=== PATIENT | female | born 1975 | race Caucasian/White ===

== ENCOUNTER → 2019-08-21 12:57 | Outpatient (BNVA) | payer SELFPAY | PROVIDERS: Family Provider Family Medicine; PCP Family Medicine; Visit Provider Nurse Practitioner | DX: M51.17 Intervertebral disc disorders with radiculopathy, lumbosacral region (principal); M54.2 Cervicalgia; G25.81 Restless legs syndrome; Z79.891 Long term (current) use of opiate analgesic | CPT/HCPCS: 99213; 99214 ==

== ENCOUNTER → 2020-04-03 10:27 | Outpatient (BNVA) | payer SELFPAY | PROVIDERS: Family Provider Family Medicine; PCP Family Medicine; Visit Provider Nurse Practitioner | DX: G89.29 Other chronic pain (principal); M51.17 Intervertebral disc disorders with radiculopathy, lumbosacral region; M54.2 Cervicalgia; G25.81 Restless legs syndrome; Z79.891 Long term (current) use of opiate analgesic | CPT/HCPCS: 99214 ==

== ENCOUNTER → 2020-08-05 10:01 | Outpatient (BNVA) | payer SELFPAY | PROVIDERS: Family Provider Family Medicine; PCP Family Medicine; Visit Provider Nurse Practitioner | DX: G89.29 Other chronic pain (principal); M51.17 Intervertebral disc disorders with radiculopathy, lumbosacral region; G25.81 Restless legs syndrome; M54.2 Cervicalgia; Z79.891 Long term (current) use of opiate analgesic | CPT/HCPCS: 99212; 99214 ==

== ENCOUNTER → 2020-12-24 10:08 | Outpatient (BNVA) | payer SELFPAY | PROVIDERS: Family Provider Family Medicine; PCP Family Medicine; Visit Provider Anesthesiology | DX: G89.29 Other chronic pain (principal); M51.17 Intervertebral disc disorders with radiculopathy, lumbosacral region; M54.2 Cervicalgia; G25.81 Restless legs syndrome; Z79.891 Long term (current) use of opiate analgesic | CPT/HCPCS: 99214 ==

== ENCOUNTER → 2021-03-06 14:04 | Outpatient (BNVA) | payer SELFPAY | PROVIDERS: Family Provider Family Medicine; PCP Nurse Practitioner Family; Visit Provider Anesthesiology | DX: G89.29 Other chronic pain (principal); M54.41 Lumbago with sciatica, right side; M54.42 Lumbago with sciatica, left side; M54.2 Cervicalgia; Z79.891 Long term (current) use of opiate analgesic | CPT/HCPCS: 99214 ==

== ENCOUNTER 2021-12-30 09:14 | Outpatient (CLI) | payer OTHER, SELFPAY ==
--- NOTE | 2021-12-30 09:19 | MM_ITS ---
WS: [id number] BILATERAL SCREENING DIGITAL BREAST MAMMOGRAPHY WITH TERESA DISPLACEMENT VIEWS. CAD PERFORMED. HISTORY: SCREEN COMPARISON: 02/07/2017 Bilateral craniocaudal and mediolateral oblique views are performed with tomosynthesis and SM. Teresa displacement views in CC and MLO projection also performed. Breasts composition: There are scattered areas of fibroglandular density. Bilateral breast implants are prepectoral. No change in the overall configuration. No rupture or extr avasation. There are a few benign calcifications within each breast. No mass. MM/[place] [id number] IMPRESSION: BI-RADS: 2-Benign FOLLOW-UP: 1 Year Follow-up
== END 2021-12-30 09:15 | disposition home or self-care (01) ==
LOC: RAD 09:15
PROVIDERS: PCP Nurse Practitioner Family; Visit Provider Nurse Practitioner Family
DX: Z12.31 Encounter for screening mammogram for malignant neoplasm of breast (principal)
CPT/HCPCS: 77063; 77067

== ENCOUNTER 2023-03-31 13:35 | Outpatient (CLI) | payer OTHER, SELFPAY ==
--- NOTE | 2023-03-31 14:12 | XR_ITS ---
WS: [id number] XR shoulder LT min 2V* [id number] REASON FOR EXAM: L ANTERIOR SHOULDER PAIN FINDINGS: No fracture or focal bone lesion. Acromioclavicular joint is intact. Sclerosis and irregularity of the subarticular acromial process. Glenohumeral joint space is not well demonstrated on this examination but does not appear to be signi ficantly narrowed. No soft tissue abnormality. 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
== END 2023-03-31 13:36 | disposition home or self-care (01) ==
PROVIDERS: PCP Nurse Practitioner Family; Visit Provider Nurse Practitioner Family
DX: M25.512 Pain in left shoulder (principal)
CPT/HCPCS: 73030

== ENCOUNTER → 2023-06-06 13:57 | Outpatient (BNVA) | payer OTHER, SELFPAY | PROVIDERS: PCP Nurse Practitioner Family; Visit Provider Specialist | DX: M25.512 Pain in left shoulder (principal); G89.29 Other chronic pain | CPT/HCPCS: 73030 ==

== ENCOUNTER 2023-07-01 10:47 | Outpatient (CLI) | payer OTHER, SELFPAY ==
--- NOTE | 2023-07-01 11:00 | MR_ITS ---
WS: [id number] MRI LEFT SHOULDER HISTORY: left shoulder injury/sprain COMPARISON: Radiograph 06/06/2023 TECHNIQUE: Multiplanar sequences of the shoulder joint are submitted. Moderate AC joint arthritis. Hypertrophic bone and soft tissue formation with abnormal signal through the AC ligament. Osteophyte encroachment upon the myotendinous portion of the supraspinatus. Signifi cant subacromial impingement. There is an acromial osteophyte with significant contact upon the dista l supraspinatus tendon. There is a small amount of fluid in the subacromial and subdeltoid bursa. No os acromion. Small erosions are noted involving the acromion and the distal clavicle. Biceps tendon i n normal position. Increased intermediate T2 signal in the distal supraspinatus tendon beginning at the level of the gle noid. More significant increased T2 signal near the subacromial impingement and distally. No full-thi ckness tear. The increased signal is most consistent with tendinopathy. There is thinning of the tend on and surface fraying. Mild tendinopathy in the distal subscapularis tendon. No tear. Infraspinatus tendon is normal. Mild narrowing of the glenohumeral joint. Intrasubstance degeneration of the superi or labrum. No tear. IMPRESSION: 1. Moderate AC joint arthritis with encroachment upon the supraspinatus tendon. 2. Severe acromial impingement upon the distal supraspinatus tendon. 3. Tendinopathy in the distal supraspinatus tendon beginning at the level of the glenoid and extendin g distally. No tendon tear identified.
== END 2023-07-01 10:48 | disposition home or self-care (01) ==
PROVIDERS: PCP Nurse Practitioner Family; Visit Provider Specialist
DX: M19.012 Primary osteoarthritis, left shoulder (principal); M25.712 Osteophyte, left shoulder; M75.82 Other shoulder lesions, left shoulder; S43.402A Unspecified sprain of left shoulder joint, initial encounter; X58.XXXA Exposure to other specified factors, initial encounter; Y93.9 Activity, unspecified; Y92.9 Unspecified place or not applicable; Y99.9 Unspecified external cause status
CPT/HCPCS: 73221

== ENCOUNTER 2024-11-13 10:31 | Outpatient (CLI) | payer OTHER, SELFPAY ==
[2024-11-13 11:22] LABS: Basophils # 0.1 10^3/uL (0.0-0.1); Basophils % 1.6 %; Eosinophils # 0.1 10^3/uL (0.0-0.8); Eosinophils % 2.6 %; Hematocrit 44.4 % (36-47); Lymphocytes # 1.6 10^3/uL (0.8-4.8); Lymphocytes % 32.4 %; Mean Corpuscular HGB Conc 30.9 g/dL (30-55); Mean Corpuscular Hemoglobin 26.1 pg (27-33); Mean Corpuscular Volume 84.6 fl (85-98); Mean Platelet Volume 10.4 fL (7.4-10.4); Monocytes # 0.5 10^3/uL (0.2-0.9); Monocytes % 9.4 %; Neutrophils # 2.69 10^3/uL (1.8-7.7); Neutrophils % 53.8 %; Nucleated Red Blood Cells % 0 %; Platelet Count 341 10^3/cmm (157-399); Red Blood Count 5.25 10^6/uL (3.85-5.65); Red Cell Distribution Width 15.6 % (12.1-15.1)
[2024-11-13 11:59] LABS: 25 Hydroxy Vitamin D 54 ng/mL (30-100); Alanine Aminotransferase 15 U/L (0-33); Albumin Level 4.6 g/dL (3.5-5.2); Alkaline Phosphatase 86 U/L (35-105); Anion Gap 13.9 (5-19); Aspartate Amino Transferase 26 U/L (0-32); Blood Urea Nitrogen 12 mg/dL (6-20); Calcium 9.2 mg/dL (8.5-10.5); Carbon Dioxide 27 mmol/L (22-29); Chloride 104 mmol/L (98-107); Ferritin 13 ng/mL (15-150); Globulin 2.5 g/dL (1.3-4.6); Glomerular Filtration Rate 52.6 mL/min (90-130); Glucose 79 mg/dL (65-115); Osmolality Calculated 291 mOsm/kg (285-295); Potassium 3.9 mmol/L (3.5-5.1); Sodium 141 mmol/L (136-145); Total Bilirubin 0.6 mg/dL (0.15-1.2); Total Protein 7.1 g/dL (6.6-8.7)
[2024-11-13 12:22] LABS: Free T4 Free Thyroxine 0.89 ng/dL (0.82-1.77)
[2024-11-14 05:55] LABS: Dehydroepiandrosterone Sulfate 88 mcg/dL (15-205)
== END 2024-11-13 10:32 | disposition home or self-care (01) ==
PROVIDERS: PCP Nurse Practitioner Family; Visit Provider Nurse Practitioner Family
DX: L65.9 Nonscarring hair loss, unspecified (principal)
CPT/HCPCS: 36415; 80053; 82306; 82627; 82652; 82728; 84439; 84443; 84630; 85025; 86376

== ENCOUNTER 2024-11-25 22:32 | Emergency (ER) | payer OTHER, SELFPAY ==
[2024-11-25 22:33] VITALS: BP 125/83; PULSE 90; RESP 16; TEMP 36.6; O2SAT 100; BMI 24.2
[2024-11-25] MEDS: ondansetron 4 MG Tablet PO (23:41)
--- NOTE | 2024-11-26 00:50 | CTR_ITS ---
PROCEDURE INFORMATION: Exam: CT Abdomen And Pelvis With Contrast Exam date and time: 11/26/2024 1:26 AM Age: 49 years old Clinical indication: Nausea and vomiting; Abdominal pain; Prior surgery; Surgery date: 6+ months; Surgery type: Gastric sleeve. Hysterectomy. Bladder repair. Csection. Epigastric pain with n/v. TECHNIQUE: Imaging protocol: Computed tomography of the abdomen and pelvis with contrast. Radiation optimization: All CT scans at this facility use at least one of these dose optimization techniques: automated exposure control; mA and/or kV adjustment per patient size (includes targeted exams where dose is matched to clinical indication); or iterative reconstruction. Contrast material: OMNI 350; Contrast volume: 75 ml; Contrast route: INTRAVENOUS (IV); COMPARISON: No relevant prior studies available. RADIATION DOSE METRICS: Total DLP (mGy-cm): 409.13 FINDINGS: Liver: Unremarkable. Gallbladder and biliary ducts: No calcified stones. No ductal dilation. Pancreas: Normal. No ductal dilation. Spleen: Unremarkable. Adrenal glands: Unremarkable. Kidneys and ureters: Normal. No hydronephrosis. Stomach and bowel: Postoperative changes of gastric sleeve procedure. Colonic diverticulosis without diverticulitis. No mechanical obstruction. Appendix: No evidence of appendicitis. Intraperitoneal space: No free air. No fluid collection. Vasculature: Unremarkable. No abdominal aortic aneurysm. Lymph nodes: No enlarged lymph nodes. Urinary bladder: Unremarkable as visualized. Reproductive: Hysterectomy. Bones/joints: No acute fracture. Soft tissues: Unremarkable. CT/CT abdomen pelvis w con* [id number] IMPRESSION: No acute abdominopelvic abnormality.
--- NOTE | 2024-11-26 01:08 | ED_ITS ---
HPI - Abdominal Pain 2 General: Chief Complaint: Abdominal Pain Stated Complaint: n/v abd pain Time Seen by Provider: 11/26/24 00:41 History of Present Illness: 49-year-old female with a history of gas tric sleeve surgery. She presents with intractable nausea and vomiting starting couple hours prior to arrival. She is complaining of epigastric pain radiating around her belly and into her back. She states this is her only surgery. No fever. No diarrhea. She has not had the symptoms before she says. Related Data Home Medications ?Medication ?Instructions ?Recorded ?Confirmed biotin 10 mg tablet 10 mg PO QDAY 08/20/1906/06 levothyroxine 88 mcg tablet 88 mcg PO .QD 08/20/19 (Synthroid) progesterone micronized 100 mg 100 mg PO .HS 03/17/22 06/06/23 capsule Previous Rx's ?Medication ?Instructions ?Recorded fluoxetine 40 mg capsule 80 mg (2 x 40 mg) PO DAILY # 60 caps 07/23/22 trazodone 100 mg tablet 200 mg (2 x 100 mg) PO .HS P RN 07/23/22 insomnia #60 tabs ondansetron 4 mg disintegrating 4 mg PO Q6H PRN nausea and 11/26/24 tablet vomiting #14 tabs sulfamethoxazole 800 1 tab PO BID 7 days #14 tabs 11/26/24 mg-trimethoprim 160 mg tablet (Bactrim DS) Allergies Allergy/AdvReac Type Severity Reaction Status Date / Time No Known Allergies Allergy Verified 06/06/23 14:00 [facility] ED 2 PFSH: Medical History Opioid contract exists Encounter for long-term opiate analgesic use Chronic midline low back pain with bilateral sciatica Chronic neck pain Surgical History Hx of tonsillectomy Hx of abdominal surgery abdominal plasty Hx of section Hx of hysterectomy Hx of bladder repair surgery bladder suspension Family History Denies family history of Anesthesia complication Social History Smoking and tobacco/nicotine status: never used tobacco/nicotine Second hand smoke exposure: No Alcohol intake: current Alcohol intake frequency: holidays/special occasions only Alcohol type: other Substance/Drug Use: never Physical Exam 2 Const: COMMON NORMALS: no acute distress GENERAL APPEARANCE: cooperative, in distress and anxious; not frail appearing HENMT: COMMON NORMALS: normocephalic, atraumatic and Normal external nose present HEAD & SCALP: normocephalic and atraumatic FACE & SINUS: normal facial exam and face symmetric NOSE: Normal external nose present Eye: COMMON NORMALS: Equal, round and reactive pupils present and EOMs intact bilaterally PUPIL: Yes Equal, round and reactive pupils present Neck/C-Spine: GENERAL: Yes trachea midline Chest: CHEST: Yes Symmetrical chest wall rise Resp: COMMON NORMALS: normal respiratory effort, No retractions, No use of accessory muscles and clear to auscultation bilaterally AUSCULTATION: clear to auscultation bilaterally Cardio: COMMON NORMALS: regular rate and regular rhythm RATE: regular rate RHYTHM: regular rhythm GI: COMMON NORMALS: Normal to inspection, nondistended, normoactive bowel sounds present PALPATION: Yes Tenderness to palpation present (GI) (Diffusely) Extremity: COMMON NORMALS: no pedal edema Neuro: DAVIDA COMA SCALE: document GCS findings Davida coma scale eye opening: Spontaneous [place] coma scale verbal response: Orientated [place] coma scale motor response: Obey commands Davida coma scale total score: 15 S ENSORY EXAM: Yes extremities (intact) Psych: COMMON NORMALS: speech normal SPEECH: Yes normal speech Skin: COMMON NORMALS: no rashes or lesions noted GENERAL SKIN EXAM: no rashes or lesions noted Course 2 Vital Signs: Vital signs: Vital Signs Temperature 97.8 F 11/25/24 22:33 Pulse Rate 93 11/26/24 03:15 Respiratory Rate 18 11/26/24 02:00 Blood Pressure 110/70 11/26/24 03:15 Pulse Oximetry 95 11/26/24 03:15 Oxygen Delivery Me thod Room Air 11/26/24 02:00 MDM - Abdominal Pain Medical Decision Making Vitals are stable. White blood cell count is 11.6. Creatinine is 1.1. Bicarbonate is 18. She is given a fluid bolus. Her CRP is only 3. She is not . Lipase is normal. She is given Haldol, Zofran, morphine for her belly discomfort and nausea. She is improved. CT is pending CT showed no acute findings. With improvement, she will be allowed home. Close outpatient follow up here in return for worsening symptoms. Lab Data 11/26/24 00:16 11/26/24 00:16 Labs/Radiology: Radiology Impressions Abdomen/Pelvis CT 11/26/24 00:50 IMPRESSION: No acute abdominopelvic abnormality. Laboratory Results WBC 11.66 10^3/uL (3.29-11.43) H 11/26/24 00:16 RBC 5.16 10^6/uL (3.85-5.65) 11/26/24 00:16 Hgb 13.40 g/dL (11.27-16.99) 11/26/24 00:16 Hct 41.9 % (36-47) 11/26/24 00:16 MCV 81.2 fl (85-98) L 11/26/24 00:16 MCH 26.0 pg (27-33) L 11/26/24 00:16 MCHC 32.0 g/dL (30-55) 11/26/24 00:16 RDW 15.2 % (12.1-15.1) H 11/26/24 00:16 Plt Count 381 10^3/cmm (157-399) 11/26/24 00:16 MPV 11.1 fL (7.4-10.4) H 11/26/24 00:16 Neut % (Auto) 80.5 % 11/26/24 00:16 Lymph % (Auto) 13.1 % 11/26/24 00:16 Delta % (Auto) 4.7 % 11/26/24 00:16 Eos % (Auto) 0.5 % 11/26/24 00:16 Baso % (Auto) 0.9 % 11/26/24 00:16 Neut # (Auto) 9.37 10^3/uL (1.8-7.7) H 11/26/24 00:16 Lymph # (Auto) 1.5 10^3/uL (0.8-4.8) 11/26/24 00:16 Delta # (Auto) 0.6 10^3/uL (0.2-0.9) 11/26/24 00:16 Eos # (Auto) 0.1 10^3/uL (0.0-0.8) 11/26/24 00:16 Baso # (Auto) 0.1 10^3/uL (0.0-0.1) 11/26/24 00:16 Nucleated RBC % (auto) 0 % 11/26/24 00:16 Nucleated RBCs # 0.0 /100WBC 11/26/24 00:16 Sodium 139 mmol/L (136-145) 11/26/24 00:16 Potassium 4.2 mmol/L (3.5-5.1) 11/26/24 00:16 Chloride 100 mmol/L (98-107) 11/26/24 00:16 Carbon Dioxide 18 mmol/L (22-29) L 11/26/24 00:16 Anion Gap 25.2 (5-19) H 11/26/24 00:16 BUN 10 mg/dL (6-20) 11/26/24 00:16 Creatinine 1.1 mg/dL (0.5-0.9) H 11/26/24 00:16 GFR Calculation 52.6 mL/min (90-130) L 11/26/24 00:16 Glucose 101 mg/dL (65-115) 11/26/24 00:16 Calculated Osmolality 287 mOsm/kg (285-295) 11/26/24 00:16 Calcium 9.7 mg/dL (8.5-10.5) 11/26/24 00:16 Total Bilirubin 0.7 mg/dL (0.15-1.2) 11/26/24 00:16 AST 36 U/L (0-32) H 11/26/24 00:16 ALT 18 U/L (0-33) 11/26/24 00:16 Alkaline Phosphatase 102 U/L (35-105) 11/26/24 00:16 C-Reactive Protein 3.0 mg/L (0.0-4.9) 11/26/24 00:16 Total Protein 7.7 g/dL (6.6-8.7) 11/26/24 00:16 Albumin 4.6 g/dL (3.5-5.2) 11/26/24 00:16 Globulin 3.1 g/dL (1.3-4.6) 11/26/24 00:16 Lipase 49 U/L (13-60) 11/26/24 00:16 HCG, Qual Negative (Negative) 11/26/24 00:16 Urine Color Yellow (Yellow) 11/26/24 02:08 Urine Appearance Clear (CLEAR) 11/26/24 02:08 Urine pH 7.5 (5-7) 11/26/24 02:08 Ur Specific Rogers 1.026 (1.005-1.030) 11/26/24 02:08 Urine Protein Negative (Negative) 11/26/24 02:08 Urine Glucose (UA) Negative (Normal) 11/26/24 02:08 Urine Ketones 2+ (Negative) H 11/26/24 02:08 Urine Blood Non-haemolysed trace (Negative) 11/26/24 02:08 Urine Nitrate Positive (Negative) A 11/26/24 02:08 Urine Bilirubin Negative (Negative) 11/26/24 02:08 Urine Urobilinogen 1.0 mg/dL (Negative) 11/26/24 02:08 Ur Leukocyte Esterase 1+ (Negative) A 11/26/24 02:08 Urine RBC 0-2 /hpf (0-2) 11/26/24 02:08 Urine WBC 0-5 /hpf (0-5) 11/26/24 02:08 Ur Squamous Epith Cells 0-5 /hpf (0-5) 11/26/24 02:08 Amorphous Sediment Not Reportable 11/26/24 02:08 Urine Bacteria 4+ /hpf (NONE) H 11/26/24 02:08 Hyaline Casts 0-4 /lpf H 11/26/24 02:08 All radiology interpretation(s) finalized by discharge Discharge Plan Discharge Patient Disposition: Home Clinical Impression: Vomiting, Urinary tract infection Condition: Stable Prescriptions: New ondansetron 4 mg tablet,disintegrating 4 mg PO Q6H PRN (Reason: nausea and vomiting) Qty: 14 0RF sulfamethoxazole-trimethoprim [Bactrim DS] 800-160 mg tablet 1 tab PO BID 7 Days Qty: 14 0RF No Action levothyroxine [Synthroid] 88 mcg tablet 88 mcg PO .QD biotin 10 mg tablet 10 mg PO QDAY progesterone micronized 100 mg capsule 100 mg PO .HS Rx Instructions: off 7 days; repeat cycle fluoxetine 40 mg capsule 80 mg PO DAILY Qty: 60 2RF trazodone 100 mg tablet 200 mg PO .HS PRN (Reason: insomnia) Qty: 60 2RF Discharge Orders: Discharge ED (Routine); Ordered 11/26/24 Ordered By: Temo Huitron Referrals: Lonnie,AMANDA RoperN [Primary Care Provider, Nurse Practitioner] - 1-3 days Patient Instructions: Urinary Tract Infection in Women (ED), Opioid Safety, Pain Management, Vomiting - Adult Activity Restrictions/Additional Instructions: Your urinalysis showed a very mild urinary tract infection. It may or may not be the cause of your vomiting. Follow a liquid diet for the next 24 hours. Take nausea medication scheduled every 4 hours while awake whether you feel nauseated or not, then as needed following that. Antibiotics as directed. Return for any problems. Call your doctor in the morning for a follow-up appointment. Stand Alone Forms: Work/School Release Print Language: Chilean Coding Level of Care Code ED Asian Studies Program Chair for Maria Luisa Brandt
[2024-11-26] MEDS: ondansetron 2 mg/ML SDV 2 mL 4 MG IVP (01:12)
[2024-11-26 01:14] VITALS: RESP 22; O2SAT 98
[2024-11-26 01:14] LABS: Basophils # 0.1 10^3/uL (0.0-0.1); Basophils % 0.9 %; Eosinophils # 0.1 10^3/uL (0.0-0.8); Eosinophils % 0.5 %; Hematocrit 41.9 % (36-47); Lymphocytes # 1.5 10^3/uL (0.8-4.8); Lymphocytes % 13.1 %; Mean Corpuscular Volume 81.2 fl (85-98); Mean Platelet Volume 11.1 fL (7.4-10.4); Monocytes # 0.6 10^3/uL (0.2-0.9); Monocytes % 4.7 %; Neutrophils # 9.37 10^3/uL (1.8-7.7); Neutrophils % 80.5 %; Nucleated Red Blood Cells % 0 %; Platelet Count 381 10^3/cmm (157-399); Red Blood Count 5.16 10^6/uL (3.85-5.65); Red Cell Distribution Width 15.2 % (12.1-15.1); White Blood Count 11.66 10^3/uL (3.29-11.43)
[2024-11-26] MEDS: morphine 4 mg/mL SDV 1 mL IVP (01:14)
[2024-11-26] MEDS: sodium chloride 0.9% 1,000 ML 999 ML IV (01:15)
[2024-11-26] MEDS: haloperidol inj 5 mg/mL INJ 1 mL 3 MG IVP (01:17)
[2024-11-26 01:20] LABS: HCG, Serum Qual Negative (Negative)
[2024-11-26 01:25] LABS: Alanine Aminotransferase 18 U/L (0-33); Albumin Level 4.6 g/dL (3.5-5.2); Alkaline Phosphatase 102 U/L (35-105); Anion Gap 25.2 (5-19); Aspartate Amino Transferase 36 U/L (0-32); Blood Urea Nitrogen 10 mg/dL (6-20); Calcium 9.7 mg/dL (8.5-10.5); Carbon Dioxide 18 mmol/L (22-29); Chloride 100 mmol/L (98-107); Creatinine Clr Calc Pharmacy 60.6548; Globulin 3.1 g/dL (1.3-4.6); Glomerular Filtration Rate 52.6 mL/min (90-130); Glucose 101 mg/dL (65-115); Lipase 49 U/L (13-60); Osmolality Calculated 287 mOsm/kg (285-295); Potassium 4.2 mmol/L (3.5-5.1); Sodium 139 mmol/L (136-145); Total Bilirubin 0.7 mg/dL (0.15-1.2); Total Protein 7.7 g/dL (6.6-8.7)
[2024-11-26] MEDS: iohexol 350 mg/mL 500 mL Btl (per mL) IV (01:27)
[2024-11-26 02:00] VITALS: RESP 18; O2SAT 95
[2024-11-26 02:18] LABS: Bilirubin Urine Negative (Negative); Blood Urine Non-haemolysed trace (Negative); Glucose Urine UA Negative (Normal); Ketones Urine 2+ (Negative); Leukocyte Esterase Urine 1+ (Negative); Nitrate Urine Positive (Negative); Protein Urine Negative (Negative); Specific Gravity, Urine 1.026 (1.005-1.030); Urine Appearance Clear (CLEAR); Urine Color Yellow (Yellow); pH Urine 7.5 (5-7)
[2024-11-26 02:23] LABS: Add Urine Microscopic? YES; Bacteria Urine 4+ /hpf; Hyaline Casts Urine 0-4 /lpf; RBC Urine 0-2 /hpf (0-2); Squamous Epithelial Cell Urine 0-5 /hpf (0-5); WBC Urine 0-5 /hpf (0-5)
[2024-11-26] MEDS: cefTRIAXone 1,000 mg SDV 1000 MG IVP (03:04)
[2024-11-26 03:15] VITALS: BP 110/70; PULSE 93; O2SAT 95
== END 2024-11-26 03:17 | disposition home or self-care (01) ==
PROVIDERS: Emergency Provider Emergency Medicine; PCP Nurse Practitioner Family
DX: R11.10 Vomiting, unspecified (principal); N39.0 Urinary tract infection, site not specified
CPT/HCPCS: 36415; 74177; 80053; 81001; 83690; 84703; 85025; 86140; 96374; 96375; 99285; J0696; J1630; J2270; J2405; J7030; Q0162